=== PATIENT | female | born 1945 | race Caucasian/White ===

== ENCOUNTER 2018-07-18 13:25 | Inpatient (IN) | payer OTHER ==
[~2018-07-18] VITALS: Ht 162.6 cm; Wt 46.1 kg
[~2018-07-18 13:25] MED LIST: ALBU0.63 NEB; ALEN70TA3 PO; ALPR-475 PO; ASPI-515 PO; CITA40TA12 PO; FLUC200T PO; FLUT15.88 INH; FLUT1BLS INH; HYDR-3241 PO; LEVO500T47 PO; LISI-167 PO; LISI2.5T PO; LISI5TAB7 PO; NYST1000 PO; PRED10TA PO; PRED20TA PO; ROSU5TAB PO; SIMV20TA3 PO; TIOT4MIS5 INH; UBID100C41 PO; anastrozole; breo; fish oil PEG; nebulizer; proair; singulair; spiriva; ventolin
[2018-07-18 14:08] LABS: INTERNATIONAL NORMALIZED RATIO 1.03 (0.93-1.1); PROTHROMBIN TIME 10.8 Seconds (9.6-11.5)
[2018-07-18 14:13] LABS: ALANINE AMINOTRANSFERASE 53 U/L (12-78); ALBUMIN 3.3 g/dL (3.4-5.0); ANION GAP 15 mmol/L (5-15); CALCIUM 8.4 mg/dL (8.5-10.1); CHLORIDE 104 mmol/L (98-107); SALICYLATE LEVEL < 1.7 mg/dL (2.8-20.0)
[2018-07-18 14:17] LABS: ALKALINE PHOSPHATASE 60 U/L (45-117); BILIRUBIN,TOTAL 0.7 mg/dL (0.2-1.0)
[2018-07-18 14:21] LABS: ACETAMINOPHEN < 2 mcg/mL (10-30)
[2018-07-18 15:00] LABS: MEAN CORPUSCULAR HEMOGLOBIN 33.4 pg (27.0-34.8); MEAN CORPUSCULAR HGB CONC 33.3 g/dL (32.4-35.8); MEAN CORPUSCULAR VOLUME 100.4 fL (80-100); MEAN PLATELET VOLUME 7.6 fL (7.4-10.4); PLATELET COUNT 226 x10^3/uL (130-400); RED BLOOD COUNT 4.62 x10^6/uL (3.82-5.3); RED CELL DISTRIBUTION WIDTH 13.5 % (9.6-15.2)
--- NOTE | 2018-07-18 15:14 | NUR ---
Pt ambulates with steady gait and balance stand by assist to restroom from ED room with EDRN. PT AOX3, pt states it is "2020". NADN. No obvious defecits observed. Pt resting back on gurney with SZ precautions in placed and connected to NIBP, continous pulse ox, and environmental monitoring specialist. Pt has call light within reach and warm blankets provided for comfort measures. Pt is maintaining oxygen levels and air way at this time with no signs or symptoms of respiratory distress observed.
[2018-07-18] MEDS ORDERED: LORazepam 2 MG/ML, 1ML ONE (15:18)
[2018-07-18 15:24] LABS: MD YES
[2018-07-18 15:27] LABS: BAND#(MANUAL) 0.32 x10^3/uL; BANDS%(MANUAL) 2 % (0-7); LYMPH#(MANUAL) 2.05 x10^3/uL (1-3.4); LYMPHS% (MANUAL) 13 % (22-44); MONOS#(MANUAL) 0.95 x10^3/uL (0.3-2.7); MONOS% (MANUAL) 6 % (2-9); SEG#(MANUAL) 12.48 x10^3/uL (1.8-6.8); SEGS% (MANUAL) 79 % (42-75)
[2018-07-18 15:29] LABS: <RBC MORPHOLOGY> NORMAL
[2018-07-18 15:30] LABS: <PLATELET ESTIMATE> ADEQUATE; <PLT MORPHOLOGY> NORMAL PLT MORPH
--- NOTE | 2018-07-18 15:49 | NUR ---
LATE NOTE FOR 1516: Pt has witnessed seizure with urine incontinence in ED. Pt provided Ativan per EMAR and PIV medication provided per EMAR.
--- NOTE | 2018-07-18 15:58 | NUR ---
PT. WAS MOVED TO TRAUMA 3. PT. REPORT WAS RECEIVED. RN IS AT THE BEDSIDE. CP MONITOR IS IN PLACE. PT.'S SEIZURE PRECAUTIONS ARE MAINTAINED.
[2018-07-18] MEDS ORDERED: LORazepam 2 MG/ML, 1ML IVPush ONE (16:00)
[2018-07-18] MEDS ORDERED: LEVETIRACETAM 2,000 MG in SODIUM CHLORIDE 0.9% 100 ML IV ONE (16:00)
--- NOTE | 2018-07-18 16:00 | NUR ---
Provided bedside report to BLAZE Patiño. All questions answered.
--- NOTE | 2018-07-18 16:07 | NUR ---
RECEIVED BEDSIDE REPORT FROM BLAZE HERNANDES AND BLAZE SARKAR. PT RESTING ON [facility].
--- NOTE | 2018-07-18 16:39 | NUR ---
PT BACK FROM CT. THIS RN ACCOMPANIED PT DURING CT IMAGE.
--- NOTE | 2018-07-18 16:50 | NUR ---
PT RESTING ON GURNEY LEFT LATERAL POSITION. PT AWAKES TO VERBAL STIMULI. VSS. WILL CONTINUE TO MONITOR
--- NOTE | 2018-07-18 16:58 | NUR ---
TO VISIT. BROUGHT CLOTHES, PHONE PEDIATRIC ASSISTANT AND BOOK. REFUSES TO STAY. STATES "I'LL CALL LATER TO FIND OUT WHERE SHE IS. NOTHING I CAN DO HERE."
[2018-07-18] MEDS ORDERED: FLUO10CA7 PO (17:13)
[2018-07-18] MEDS ORDERED: ALBU8.5H8 INH (17:13)
[2018-07-18] MEDS ORDERED: ROFL500T PO (17:13)
[2018-07-18] MEDS ORDERED: ANAS1TAB PO (17:13)
--- NOTE | 2018-07-18 17:14 | NUR ---
PT RESTING ON GURNEY. NO ACUTE DISTRESS NOTED. NO SEIZURE LIKE ACTIVITY. VSS. WILL CONTINUE TO MONITOR.
--- NOTE | 2018-07-18 17:29 | NUR ---
PT LINENS CHANGED. PT CLEANED UP AND PLACED ON CLEAN AND DRY LINENS. PT TOLERATED WITH NO COMPLICATIONS.
--- NOTE | 2018-07-18 17:45 | NUR ---
PT WITH [facility]. DENIED BY ASHLI SYED
[2018-07-18] MEDS ORDERED: ONDANSETRON ODT 4 MG PO PRN (18:00)
[2018-07-18] MEDS ORDERED: POLYETHYLENE GLYCOL 17 GM PACKET PO PRN (18:00)
[2018-07-18] MEDS ORDERED: ACETAMINOPHEN 325 MG TABLET PO PRN (18:00)
[2018-07-18] MEDS ORDERED: BISACODYL 10 MG SUPP PR PRN (18:00)
[2018-07-18] MEDS ORDERED: ALENDRONATE 70 MG TABLET PO SCH ×2 (18:00→19:00)
--- NOTE | 2018-07-18 18:06 | NUR ---
REPORT TO BLAZE LEON. ALL QUESTIONS ANSWERED. EDWARD WILL CALL BACK WHEN ROOM IS CLEAN
--- NOTE | 2018-07-18 18:22 | NUR ---
pt cleaned after using bed chatterjee. pt has clean linens and gown. no acute distress noted. will continue to monitor.
[2018-07-18 18:31] LABS: HEMOGLOBIN A1C 6.1 % (4.2-6.3)
[2018-07-18 18:53] VITALS: BP 114/70
[2018-07-18 19:00] VITALS: BP 114/70
[2018-07-18] MEDS ORDERED: IPRATROPIUM 0.5 MG/2.5 ML INHA NPPB SCH (20:00)
[2018-07-18] MEDS ORDERED: ALBUTEROL SULFATE 2.5 MG/3 ML NPPB PRN (20:30)
[2018-07-18] MEDS: IPRATROPIUM 0.5 MG/2.5 ML INHA NPPB SCH (20:32)
[2018-07-18] MEDS: BUDESONIDE 0.5 MG/2 ML INHA NPPB SCH (20:32)
[2018-07-18] MEDS ORDERED: TEMPLATE NON-FORMULARY MED. (Ubidecarenone** (Co Q-10**) 200 MG) PO SCH (21:00)
[2018-07-18] MEDS ORDERED: ALBUTEROL SULFATE 2.5 MG/3 ML NPPB SCH (21:00)
[2018-07-18] MEDS: HEPARIN 5,000 UNITS/ML, 1ML SQ SCH (21:53)
[2018-07-18] MEDS: SODIUM CHLORIDE 0.9% 1,000 ML IV SCH (21:53)
[2018-07-18] MEDS: ATORVASTATIN 20 MG TABLET PO SCH (21:55)
[2018-07-18 23:42] LABS: MICROSCOPIC NOT IND
[2018-07-18 23:45] LABS: CHLORIDE,URINE RANDOM 140 mmol/L; POTASSIUM,URINE RANDOM 37 mmol/L; SODIUM,URINE RANDOM 175 mmol/L
[2018-07-18 23:47] LABS: CULTURE INDICATED? NO
[2018-07-19 00:57] VITALS: BP 119/56
[2018-07-19] MEDS: HEPARIN 5,000 UNITS/ML, 1ML SQ SCH ×3 (02:34→18:12)
[2018-07-19] MEDS: SODIUM CHLORIDE 0.9% 1,000 ML IV SCH ×2 (05:37→18:12)
[2018-07-19 07:42] LABS: BASOPHILS # (AUTO) 0.02 x10^3/uL (0-0.1); BASOPHILS % (AUTO) 0 % (0-1); EOSINOPHILS # (AUTO) 0.15 x10^3/uL (0-0.4); EOSINOPHILS % (AUTO) 1 % (1-7); LYMPHOCYTES # (AUTO) 1.45 x10^3/uL (1-3.4); LYMPHOCYTES % (AUTO) 14 % (22-44); MD NO; MEAN CORPUSCULAR HEMOGLOBIN 33.6 pg (27.0-34.8); MEAN CORPUSCULAR HGB CONC 33.9 g/dL (32.4-35.8); MEAN CORPUSCULAR VOLUME 99.2 fL (80-100); MEAN PLATELET VOLUME 7.7 fL (7.4-10.4); MONOCYTES # (AUTO) 0.74 x10^3/uL (0.2-0.8); MONOCYTES % (AUTO) 7 % (2-9); NEUTROPHILS # (AUTO) 7.88 x10^3/uL (1.8-6.8); NEUTROPHILS % (AUTO) 77 % (42-75); PLATELET COUNT 158 x10^3/uL (130-400); RED BLOOD COUNT 3.73 x10^6/uL (3.82-5.3); RED CELL DISTRIBUTION WIDTH 13.2 % (9.6-15.2)
[2018-07-19 07:45] LABS: CALCIUM 7.3 mg/dL (8.5-10.1); CHLORIDE 109 mmol/L (98-107)
[2018-07-19 07:51] LABS: ALANINE AMINOTRANSFERASE 37 U/L (12-78); ALBUMIN 2.7 g/dL (3.4-5.0); ALKALINE PHOSPHATASE 40 U/L (45-117); ANION GAP 6 mmol/L (5-15); BILIRUBIN,TOTAL 1.2 mg/dL (0.2-1.0); CREATININE 0.78 mg/dL (0.55-1.02); TOTAL PROTEIN 4.8 g/dL (6.4-8.2)
[2018-07-19 08:49] VITALS: BP 124/62
[2018-07-19] MEDS ORDERED: FLUTICASONE/VILANTEROL 200-25MCG/INH INH SCH (09:00)
[2018-07-19] MEDS ORDERED: LEVETIRACETAM 500 MG TABLET PO SCH ×2 (09:00)
[2018-07-19] MEDS: ANASTROZOLE 1 MG TABLET PO SCH (09:00)
[2018-07-19] MEDS: IPRATROPIUM 0.5 MG/2.5 ML INHA NPPB SCH ×2 (09:00→18:50)
[2018-07-19] MEDS: SENNA/DOCUSATE TABLET PO SCH (09:00)
[2018-07-19] MEDS: FLUOXETINE 10 MG CAP PO SCH (09:00)
[2018-07-19] MEDS: BUDESONIDE 0.5 MG/2 ML INHA NPPB SCH ×2 (09:00→18:50)
[2018-07-19] MEDS: ROFLUMILAST 500 MCG HOMEMEDPO SCH (09:00)
[2018-07-19] MEDS ORDERED: LORazepam 0.5MG TABLET PO ONE (10:00)
[2018-07-19] MEDS: POTASSIUM CHLORIDE 20 MEQ PACKET PO SCH (10:03)
[2018-07-19] MEDS: ASPIRIN 81 MG TABLET EC PO SCH (10:03)
[2018-07-19] MEDS ORDERED: GADOBUTROL 7.5 MMOL/7.5 ML PFS ONE (11:03)
[2018-07-19 15:20] LABS: AMPHETAMINE SCREEN, URINE Negative (Negative); BARBITURATE SCREEN, URINE Negative (Negative); BENZODIAZEPINE SCREEN, URINE Negative (Negative); CANNABINOID SCREEN, URINE Negative (Negative); COCAINE SCREEN, URINE Negative (Negative); METHADONE SCREEN, URINE Negative (Negative); OPIATE SCREEN, URINE Negative (Negative)
[2018-07-19 15:49] VITALS: BP 148/67
[2018-07-19] MEDS ORDERED: LEVETIRACETAM 1,000 MG in SODIUM CHLORIDE 0.9% 100 ML IV SCH (16:30)
[2018-07-19 18:46] VITALS: BP 119/53
[2018-07-19] MEDS ORDERED: LEVETIRACETAM 100 MG/ML, 5ML IV SCH (21:00)
[2018-07-19] MEDS: ATORVASTATIN 20 MG TABLET PO SCH (21:23)
[2018-07-19] MEDS: LEVETIRACETAM 500 MG TABLET PO SCH (21:24)
[2018-07-20 01:38] VITALS: BP 115/63
[2018-07-20] MEDS: HEPARIN 5,000 UNITS/ML, 1ML SQ SCH ×2 (02:15→11:06)
[2018-07-20] MEDS: SODIUM CHLORIDE 0.9% 1,000 ML IV SCH (02:15)
[2018-07-20 06:21] LABS: CHLORIDE 112 mmol/L (98-107)
[2018-07-20 06:22] LABS: BASOPHILS # (AUTO) 0.03 x10^3/uL (0-0.1); BASOPHILS % (AUTO) 0 % (0-1); EOSINOPHILS # (AUTO) 0.08 x10^3/uL (0-0.4); EOSINOPHILS % (AUTO) 1 % (1-7); LYMPHOCYTES # (AUTO) 1.36 x10^3/uL (1-3.4); LYMPHOCYTES % (AUTO) 17 % (22-44); MD NO; MEAN CORPUSCULAR HEMOGLOBIN 33.8 pg (27.0-34.8); MEAN CORPUSCULAR HGB CONC 33.9 g/dL (32.4-35.8); MEAN CORPUSCULAR VOLUME 99.6 fL (80-100); MEAN PLATELET VOLUME 7.2 fL (7.4-10.4); MONOCYTES # (AUTO) 0.48 x10^3/uL (0.2-0.8); MONOCYTES % (AUTO) 6 % (2-9); NEUTROPHILS # (AUTO) 6.03 x10^3/uL (1.8-6.8); NEUTROPHILS % (AUTO) 76 % (42-75); PLATELET COUNT 139 x10^3/uL (130-400); RED BLOOD COUNT 3.53 x10^6/uL (3.82-5.3); RED CELL DISTRIBUTION WIDTH 13.4 % (9.6-15.2)
[2018-07-20 06:29] LABS: ALANINE AMINOTRANSFERASE 34 U/L (12-78); ALBUMIN 2.5 g/dL (3.4-5.0); ALKALINE PHOSPHATASE 35 U/L (45-117); ANION GAP 6 mmol/L (5-15); BILIRUBIN,TOTAL 1.2 mg/dL (0.2-1.0); CALCIUM 7.2 mg/dL (8.5-10.1); CREATININE 0.65 mg/dL (0.55-1.02); TOTAL PROTEIN 4.7 g/dL (6.4-8.2)
[2018-07-20] MEDS ORDERED: ALENDRONATE 70 MG TABLET PO SCH (06:30)
[2018-07-20 08:19] VITALS: BP 145/73
[2018-07-20] MEDS: BUDESONIDE 0.5 MG/2 ML INHA NPPB SCH (08:40)
[2018-07-20] MEDS: ROFLUMILAST 500 MCG HOMEMEDPO SCH (08:41)
[2018-07-20] MEDS: FLUOXETINE 10 MG CAP PO SCH (08:44)
[2018-07-20] MEDS: SENNA/DOCUSATE TABLET PO SCH (08:44)
[2018-07-20] MEDS: POTASSIUM CHLORIDE 20 MEQ PACKET PO SCH (08:45)
[2018-07-20] MEDS: ASPIRIN 81 MG TABLET EC PO SCH (08:45)
[2018-07-20] MEDS: LEVETIRACETAM 500 MG TABLET PO SCH (08:46)
[2018-07-20] MEDS ORDERED: ALBUTEROL/IPRATROPIUM 2.5MG/0.5MG, 3 ML NPPB SCH (09:00)
[2018-07-20] MEDS: ANASTROZOLE 1 MG TABLET PO SCH (11:37)
[2018-07-20 12:05] VITALS: BP 118/56
[2018-07-20] MEDS ORDERED: LEVE500T53 PO (13:27)
[2018-07-20] MEDS ORDERED: ASPI81TA45 PO (13:28)
[2018-07-20] MEDS ORDERED: SODIUM CHLORIDE 0.9% 1,000 ML IV SCH (17:53)
[2018-07-20] MEDS ORDERED: LEVETIRACETAM 500 MG TABLET PO SCH (21:00)
== END 2018-07-20 15:00 | disposition home or self-care (01) | DRG 100 ==
LOC: ED 16:11 → EDIP 17:14 → 4WST 18:37 → DCLOUNGE 07-20 14:52
PROVIDERS: ADMIT Internal Medicine; ATTEND Internal Medicine
PROC: 0T9B70Z Drainage of Bladder with Drainage Device, Via Natural or Artificial Opening (ICD-10-PCS; principal; 2018-07-18)
DX: G40.909 Epilepsy, unspecified, not intractable, without status epilepticus (principal); E43 Unspecified severe protein-calorie malnutrition; R65.11 Systemic inflammatory response syndrome (SIRS) of non-infectious origin with acute organ dysfunction; N17.9 Acute kidney failure, unspecified; E87.2 Acidosis; G93.40 Encephalopathy, unspecified; J44.1 Chronic obstructive pulmonary disease with (acute) exacerbation; Z68.1 Body mass index [BMI] 19.9 or less, adult; D72.829 Elevated white blood cell count, unspecified; D75.89 Other specified diseases of blood and blood-forming organs; E78.5 Hyperlipidemia, unspecified; E87.6 Hypokalemia; F17.210 Nicotine dependence, cigarettes, uncomplicated; F41.9 Anxiety disorder, unspecified; G47.33 Obstructive sleep apnea (adult) (pediatric); I10 Essential (primary) hypertension; I25.10 Atherosclerotic heart disease of native coronary artery without angina pectoris; I25.2 Old myocardial infarction; M81.0 Age-related osteoporosis without current pathological fracture; Z85.3 Personal history of malignant neoplasm of breast; Z90.710 Acquired absence of both cervix and uterus; Z71.6 Tobacco abuse counseling; Z79.899 Other long term (current) drug therapy; Z79.82 Long term (current) use of aspirin
CPT/HCPCS: 36415; 70450; 70553; 71045; 80053; 80307; 81003; 82140; 82436; 82607; 82962; 83036; 83605; 84133; 84300; 85025; 85610; 87040; 93005; 94640; 95812; 96365; 96375; A9585; G0378; J1644; J1953; J7620; J7626; J7644; J2060; J7030

== ENCOUNTER 2018-08-07 15:49 | Inpatient (IN) | payer OTHER ==
[~2018-08-07] VITALS: Ht 162.6 cm; Wt 49.0 kg
[~2018-08-07 15:49] MED LIST changes: +ALBU8.5H8 INH; +ANAS1TAB PO; +ASPI81TA45 PO; +FLUO10CA7 PO; +LEVE500T53 PO; +ROFL500T PO
[2018-08-07 16:43] LABS: ALBUMIN 3.5 g/dL (3.4-5.0); ANION GAP 6 mmol/L (5-15); CALCIUM 8.7 mg/dL (8.5-10.1); CHLORIDE 103 mmol/L (98-107)
[2018-08-07 16:45] LABS: BASOPHILS # (AUTO) 0.02 x10^3/uL (0-0.1); BASOPHILS % (AUTO) 0 % (0-1); EOSINOPHILS # (AUTO) 0.02 x10^3/uL (0-0.4); EOSINOPHILS % (AUTO) 0 % (1-7); LYMPHOCYTES # (AUTO) 1.45 x10^3/uL (1-3.4); LYMPHOCYTES % (AUTO) 17 % (22-44); MD NO; MEAN CORPUSCULAR HEMOGLOBIN 33.6 pg (27.0-34.8); MEAN CORPUSCULAR VOLUME 101.7 fL (80-100); MEAN PLATELET VOLUME 7.3 fL (7.4-10.4); MONOCYTES # (AUTO) 0.74 x10^3/uL (0.2-0.8); MONOCYTES % (AUTO) 9 % (2-9); NEUTROPHILS # (AUTO) 6.19 x10^3/uL (1.8-6.8); NEUTROPHILS % (AUTO) 73 % (42-75); PLATELET COUNT 220 x10^3/uL (130-400); RED BLOOD COUNT 4.25 x10^6/uL (3.82-5.3); RED CELL DISTRIBUTION WIDTH 14.1 % (9.6-15.2)
[2018-08-07 16:46] LABS: ALANINE AMINOTRANSFERASE 24 U/L (12-78); ALKALINE PHOSPHATASE 57 U/L (45-117); BILIRUBIN,TOTAL 0.7 mg/dL (0.2-1.0); CREATININE 0.97 mg/dL (0.55-1.02); TOTAL PROTEIN 6.8 g/dL (6.4-8.2)
--- NOTE | 2018-08-07 17:20 | NUR ---
TO ROOM FROM LOBBY. NAD.
[2018-08-07] MEDS ORDERED: DIPH,PERTUSS(ACELL),TET VAC/PF 0.5 ML IM-VACC ONE ×2 (17:30→18:33)
[2018-08-07] MEDS ORDERED: SODIUM CHLORIDE FLUSH 10ML SYR IVF ONE (17:30)
[2018-08-07] MEDS ORDERED: AMPICILLIN/SULBACTAM 3 GM in SODIUM CHLORIDE 0.9% 100 ML IV ONE (17:30)
[2018-08-07] MEDS ORDERED: HYDROcodone/APAP 5/325 TABLET PO ONE (17:30)
--- NOTE | 2018-08-07 17:38 | NUR ---
ANKIT RN: PT CHECKED IN BY ANKIT THAKUR. THIS IS A 73 YO FEMALE WHO PRESENTS TO THE ER C/O RIGHT INDEX PAIN/SWELLING/REDNESS SINCE LAST NIGHT WHEN HER CAT BIT HER. REDNESS NOTED UP TO MID FOREARM ON THE RIGHT. PT HAS SCATTERED BRUSING OVER BILAT FA. PER PT "THIS IS NORMAL" AND A TREMOR NOTED THAT IS BASELINE PER PT. PT AO X 4. SKIN WARM AND DRY. RESP EVEN AND UNLABORED. REPORT TO BLAZE ADAMSON WHO ASSUMED CARE OF PT.
[2018-08-07] MEDS ORDERED: HYDROcodone/APAP 5/325 TABLET ONE (18:33)
--- NOTE | 2018-08-07 18:40 | NUR ---
MEDICATED PER EMAR. PT RESTING IN BED. DENIES NEEDS AT THIS TIME.
--- NOTE | 2018-08-07 19:10 | NUR ---
BEDSIDE REPORT RECEIVED FROM JOYCE ROJAS. PT RESTING CALMLY IN BED.
[2018-08-07] MEDS ORDERED: ONDANSETRON 2MG/ML, 2ML IVPush PRN (19:30)
[2018-08-07] MEDS ORDERED: DOCUSATE 100 MG CAPSULE PO PRN (19:30)
[2018-08-07] MEDS ORDERED: morphine SULFATE 10 MG/ML, 1ML IVPush PRN (19:30)
[2018-08-07] MEDS ORDERED: POLYETHYLENE GLYCOL 17 GM PACKET PO PRN (19:30)
[2018-08-07] MEDS ORDERED: ACETAMINOPHEN 325 MG TABLET PO PRN (19:30)
[2018-08-07] MEDS ORDERED: hydrALAzine 20 MG/ML, 1ML IVPush PRN (19:30)
[2018-08-07] MEDS ORDERED: PROMETHAZINE 25 MG/ML, 1ML IM PRN (19:30)
[2018-08-07] MEDS ORDERED: ONDANSETRON ODT 4 MG PO PRN (19:30)
[2018-08-07] MEDS ORDERED: BISACODYL 10 MG SUPP PR PRN (19:30)
--- NOTE | 2018-08-07 19:46 | NUR ---
PT UP TO THE BATHROOM STEADILY. ABX FINISHED. PT IV SALINE LOCKED. CALL LIGHT WITHIN REACH. WILL CONTINUE TO MONITOR.
[2018-08-07] MEDS ORDERED: TEMPLATE NON-FORMULARY MED. (Albuterol Sulfate (Albuterol Sulfate**) 1 VIAL) NEB PRN (20:00)
[2018-08-07 20:03] LABS: FREE T4 (FREE THYROXINE) 0.91 ng/dL (0.76-1.46); THYROID STIMULATING HORMONE 0.228 mIU/L (0.358-3.740)
[2018-08-07 20:04] LABS: HEMOGLOBIN A1C 5.9 % (4.2-6.3)
[2018-08-07 20:19] LABS: HCT (SEDRATE) 37.7 % (34.6-47.8)
[2018-08-07] MEDS ORDERED: TEMPLATE NON-FORMULARY MED. (Ubidecarenone** (Co Q-10**) 200 MG) PO SCH (21:00)
--- NOTE | 2018-08-07 22:01 | NUR ---
REPORT TO BRANT THAKUR FOR ROOM 460
[2018-08-07] MEDS ORDERED: HEPARIN 5,000 UNITS/ML, 1ML ONE (22:02)
[2018-08-07] MEDS ORDERED: LISINOPRIL 5 MG TABLET ONE (22:03)
[2018-08-07] MEDS ORDERED: LEVETIRACETAM 500 MG TABLET ONE (22:03)
[2018-08-07] MEDS: SODIUM CHLORIDE 0.9% 1,000 ML IV SCH (22:08)
[2018-08-07] MEDS: ATORVASTATIN 20 MG TABLET PO SCH (22:09)
[2018-08-07] MEDS: LEVETIRACETAM 500 MG TABLET PO SCH (22:09)
[2018-08-07] MEDS: HEPARIN 5,000 UNITS/ML, 1ML SQ SCH (22:11)
[2018-08-07] MEDS: LISINOPRIL 5 MG TABLET PO SCH (22:16)
--- NOTE | 2018-08-07 22:25 | NUR ---
MEDICATED PT WITH SCHEDULED MEDS. PT LISINOPRIL HELD DUE TO LOW BP, SEE CHARTED. HOSPITALIST MADE AWARE, ORDERS PLACED. ORDERED NS BOLUS INFUSING AT THIS TIME. PT WAS UP TO BATHROOM STEADILY. PT CURRENTLY IN BED DOZING OFF AND ON.
[2018-08-07] MEDS ORDERED: SODIUM CHLORIDE 0.9% 1,000ML IVBOLUS ONE (22:30)
--- NOTE | 2018-08-07 23:02 | NUR ---
pt bp improved at this time, see charted. floor rn Reinaldo updated. PT UNSURE IF SHE HAD ANY LYMPHNODES REMOVED WITH HX OF BREAST CA. PT GOING UP TO FLOOR AT THIS TIME.
[2018-08-08] MEDS: AMPICILLIN/SULBACTAM 3 GM in SODIUM CHLORIDE 0.9% 100 ML IV SCH ×4 (01:04→18:37)
[2018-08-08 01:07] VITALS: BP 100/60
[2018-08-08] MEDS ORDERED: IPRATROPIUM 0.5 MG/2.5 ML INHA NPPB SCH (06:00)
[2018-08-08] MEDS ORDERED: ALBUTEROL SULFATE 2.5 MG/3 ML NPPB SCH (06:00)
[2018-08-08 06:02] LABS: BASOPHILS # (AUTO) 0.02 x10^3/uL (0-0.1); BASOPHILS % (AUTO) 0 % (0-1); EOSINOPHILS # (AUTO) 0.04 x10^3/uL (0-0.4); EOSINOPHILS % (AUTO) 1 % (1-7); LYMPHOCYTES # (AUTO) 1.75 x10^3/uL (1-3.4); LYMPHOCYTES % (AUTO) 32 % (22-44); MD NO; MEAN CORPUSCULAR HEMOGLOBIN 33.3 pg (27.0-34.8); MEAN CORPUSCULAR VOLUME 100.8 fL (80-100); MEAN PLATELET VOLUME 6.9 fL (7.4-10.4); MONOCYTES # (AUTO) 0.67 x10^3/uL (0.2-0.8); MONOCYTES % (AUTO) 12 % (2-9); NEUTROPHILS # (AUTO) 3.04 x10^3/uL (1.8-6.8); NEUTROPHILS % (AUTO) 55 % (42-75); PLATELET COUNT 167 x10^3/uL (130-400); RED BLOOD COUNT 3.47 x10^6/uL (3.82-5.3); RED CELL DISTRIBUTION WIDTH 14.5 % (9.6-15.2)
[2018-08-08 06:10] LABS: ALBUMIN 2.6 g/dL (3.4-5.0); ANION GAP 3 mmol/L (5-15); CALCIUM 7.9 mg/dL (8.5-10.1); CHLORIDE 116 mmol/L (98-107)
[2018-08-08] MEDS: HEPARIN 5,000 UNITS/ML, 1ML SQ SCH ×3 (06:12→21:03)
[2018-08-08 06:14] LABS: ALANINE AMINOTRANSFERASE 19 U/L (12-78); ALKALINE PHOSPHATASE 44 U/L (45-117); BILIRUBIN,TOTAL 0.6 mg/dL (0.2-1.0); CHOLESTEROL, TOTAL 125 mg/dL (140-239); CREATININE 0.79 mg/dL (0.55-1.02); HDL CHOL % 50 % (28-40); HDL CHOLESTEROL (DIRECT) 63 mg/dL (40-60); LDL CHOLESTEROL,CALCULATED 40 mg/dL (54-169); LDL/HDL RATIO 0.6 (0.5-3.0); TOTAL PROTEIN 5.2 g/dL (6.4-8.2); TRIGLYCERIDES 109 mg/dL (50-200); VLDL CHOLESTEROL 22 mg/dL (0-25)
[2018-08-08 06:31] VITALS: BP 91/46
[2018-08-08] MEDS ORDERED: ALBUTEROL/IPRATROPIUM 2.5MG/0.5MG, 3 ML ONE (06:46)
[2018-08-08] MEDS: ALBUTEROL/IPRATROPIUM 2.5MG/0.5MG, 3 ML HHN SCH ×4 (07:00→19:06)
[2018-08-08] MEDS: LISINOPRIL 5 MG TABLET PO SCH ×3 (09:00→21:02)
[2018-08-08] MEDS: BUDESONIDE 0.5 MG/2 ML INHA INH SCH ×2 (09:00→19:06)
[2018-08-08] MEDS: ROFLUMILAST 500 MCG HOMEMEDPO SCH (09:00)
[2018-08-08] MEDS: FLUOXETINE 10 MG CAP PO SCH (09:00)
[2018-08-08] MEDS: SODIUM CHLORIDE 0.9% 1,000 ML IV SCH (09:03)
[2018-08-08] MEDS: ANASTROZOLE 1 MG TABLET PO SCH (09:03)
[2018-08-08] MEDS: LEVETIRACETAM 500 MG TABLET PO SCH ×2 (09:04→21:02)
[2018-08-08] MEDS: ASPIRIN 81 MG TABLET EC PO SCH (09:04)
[2018-08-08 13:36] VITALS: BP 107/57
[2018-08-08 14:01] VITALS: BP 132/80
[2018-08-08] MEDS: HYDROcodone/APAP 5/325 TABLET PO PRN ×2 (17:00→21:03)
[2018-08-08 18:30] VITALS: BP 122/60
[2018-08-08] MEDS: ATORVASTATIN 20 MG TABLET PO SCH (21:02)
[2018-08-09] MEDS: AMPICILLIN/SULBACTAM 3 GM in SODIUM CHLORIDE 0.9% 100 ML IV SCH ×4 (00:52→19:20)
[2018-08-09 01:58] VITALS: BP 94/58
[2018-08-09 06:43] VITALS: BP 103/55
[2018-08-09] MEDS: HEPARIN 5,000 UNITS/ML, 1ML SQ SCH ×3 (06:48→21:30)
[2018-08-09] MEDS: ALBUTEROL/IPRATROPIUM 2.5MG/0.5MG, 3 ML HHN SCH ×3 (07:36→18:34)
[2018-08-09] MEDS: BUDESONIDE 0.5 MG/2 ML INHA INH SCH ×2 (07:36→21:00)
[2018-08-09] MEDS: ANASTROZOLE 1 MG TABLET PO SCH (08:51)
[2018-08-09] MEDS: ASPIRIN 81 MG TABLET EC PO SCH (08:55)
[2018-08-09] MEDS: HYDROcodone/APAP 5/325 TABLET PO PRN ×2 (08:55→21:30)
[2018-08-09] MEDS: LEVETIRACETAM 500 MG TABLET PO SCH ×2 (08:56→21:30)
[2018-08-09] MEDS: LISINOPRIL 5 MG TABLET PO SCH (08:58)
[2018-08-09] MEDS: ROFLUMILAST 500 MCG HOMEMEDPO SCH (08:59)
[2018-08-09] MEDS: FLUOXETINE 10 MG CAP PO SCH (08:59)
[2018-08-09 10:00] LABS: BASOPHILS # (AUTO) 0.02 x10^3/uL (0-0.1); BASOPHILS % (AUTO) 0 % (0-1); EOSINOPHILS # (AUTO) 0.02 x10^3/uL (0-0.4); EOSINOPHILS % (AUTO) 1 % (1-7); LYMPHOCYTES # (AUTO) 0.83 x10^3/uL (1-3.4); LYMPHOCYTES % (AUTO) 18 % (22-44); MD NO; MEAN CORPUSCULAR HEMOGLOBIN 33.1 pg (27.0-34.8); MEAN CORPUSCULAR HGB CONC 32.9 g/dL (32.4-35.8); MEAN CORPUSCULAR VOLUME 100.8 fL (80-100); MEAN PLATELET VOLUME 6.9 fL (7.4-10.4); MONOCYTES # (AUTO) 0.44 x10^3/uL (0.2-0.8); MONOCYTES % (AUTO) 10 % (2-9); NEUTROPHILS # (AUTO) 3.28 x10^3/uL (1.8-6.8); NEUTROPHILS % (AUTO) 72 % (42-75); PLATELET COUNT 163 x10^3/uL (130-400); RED BLOOD COUNT 3.48 x10^6/uL (3.82-5.3); RED CELL DISTRIBUTION WIDTH 14.5 % (9.6-15.2)
[2018-08-09 10:01] LABS: ANION GAP 3 mmol/L (5-15); CALCIUM 7.9 mg/dL (8.5-10.1); CHLORIDE 116 mmol/L (98-107)
[2018-08-09 10:02] LABS: CREATININE 0.69 mg/dL (0.55-1.02)
[2018-08-09] MEDS: LORazepam 0.5MG TABLET PO PRN ×2 (10:30→21:30)
[2018-08-09] MEDS: MULTIVIT.W/IRON, MINERALS ORAL SOL PO SCH (13:17)
[2018-08-09] MEDS: THIAMINE 100MG TABLET PO SCH (13:17)
[2018-08-09] MEDS: ASCORBIC ACID 500 MG TABLET PO SCH (13:17)
[2018-08-09 13:20] VITALS: BP 90/53
[2018-08-09 20:39] VITALS: BP 117/55
[2018-08-09] MEDS: ATORVASTATIN 20 MG TABLET PO SCH (21:30)
[2018-08-10 01:11] VITALS: BP 102/58
[2018-08-10] MEDS: AMPICILLIN/SULBACTAM 3 GM in SODIUM CHLORIDE 0.9% 100 ML IV SCH ×4 (01:15→21:32)
[2018-08-10] MEDS: ALBUTEROL/IPRATROPIUM 2.5MG/0.5MG, 3 ML HHN SCH ×4 (02:15→20:53)
[2018-08-10 05:16] LABS: ANION GAP 4 mmol/L (5-15); CALCIUM 8.1 mg/dL (8.5-10.1); CHLORIDE 112 mmol/L (98-107); CREATININE 0.67 mg/dL (0.55-1.02)
[2018-08-10] MEDS: HEPARIN 5,000 UNITS/ML, 1ML SQ SCH ×3 (06:12→21:31)
[2018-08-10 07:56] VITALS: BP 138/75
[2018-08-10] MEDS: MULTIVIT.W/IRON, MINERALS ORAL SOL PO SCH (08:44)
[2018-08-10] MEDS: THIAMINE 100MG TABLET PO SCH (08:44)
[2018-08-10] MEDS: LEVETIRACETAM 500 MG TABLET PO SCH ×2 (08:44→21:31)
[2018-08-10] MEDS: ASPIRIN 81 MG TABLET EC PO SCH (08:44)
[2018-08-10] MEDS: ASCORBIC ACID 500 MG TABLET PO SCH (08:44)
[2018-08-10] MEDS: ANASTROZOLE 1 MG TABLET PO SCH (08:50)
[2018-08-10] MEDS: HYDROcodone/APAP 5/325 TABLET PO PRN ×2 (08:53→21:36)
[2018-08-10] MEDS: ROFLUMILAST 500 MCG HOMEMEDPO SCH (09:00)
[2018-08-10] MEDS: BUDESONIDE 0.5 MG/2 ML INHA INH SCH ×2 (10:10→21:00)
[2018-08-10 13:05] VITALS: BP 121/66
[2018-08-10] MEDS: LORazepam 0.5MG TABLET PO PRN ×2 (15:41→21:36)
[2018-08-10 19:55] VITALS: BP 142/74
[2018-08-10] MEDS: ATORVASTATIN 20 MG TABLET PO SCH (21:31)
[2018-08-11 01:44] VITALS: BP 142/59
[2018-08-11] MEDS: ALBUTEROL/IPRATROPIUM 2.5MG/0.5MG, 3 ML HHN SCH ×3 (03:00→09:16)
[2018-08-11] MEDS: AMPICILLIN/SULBACTAM 3 GM in SODIUM CHLORIDE 0.9% 100 ML IV SCH ×2 (03:25→09:50)
[2018-08-11] MEDS: HEPARIN 5,000 UNITS/ML, 1ML SQ SCH (06:04)
[2018-08-11] MEDS ORDERED: ALENDRONATE 70 MG TABLET PO SCH (06:30)
[2018-08-11 07:17] VITALS: BP 127/65
[2018-08-11] MEDS: ASCORBIC ACID 500 MG TABLET PO SCH (08:50)
[2018-08-11] MEDS: LEVETIRACETAM 500 MG TABLET PO SCH (08:50)
[2018-08-11] MEDS: THIAMINE 100MG TABLET PO SCH (08:50)
[2018-08-11] MEDS: ASPIRIN 81 MG TABLET EC PO SCH (08:55)
[2018-08-11] MEDS: ANASTROZOLE 1 MG TABLET PO SCH (09:02)
[2018-08-11] MEDS: MULTIVIT.W/IRON, MINERALS ORAL SOL PO SCH (09:02)
[2018-08-11] MEDS: BUDESONIDE 0.5 MG/2 ML INHA INH SCH (09:16)
[2018-08-11] MEDS ORDERED: MULT1TAB60 PO (10:17)
[2018-08-11] MEDS ORDERED: THIA100T67 PO (10:17)
[2018-08-11] MEDS ORDERED: AMOX1TAB64 PO (10:17)
[2018-08-11] MEDS ORDERED: FOLI-17 PO (10:17)
[2018-08-11] MEDS ORDERED: AMOXICILLIN/CLAV 875-125MG TABLET PO SCH (10:30)
== END 2018-08-11 13:35 | disposition home or self-care (01) | DRG 602 ==
LOC: ED 17:53 → EDIP 19:01 → 4NOR 23:09
PROVIDERS: ADMIT Internal Medicine; ATTEND Internal Medicine
DX: L03.011 Cellulitis of right finger (principal); E43 Unspecified severe protein-calorie malnutrition; E87.0 Hyperosmolality and hypernatremia; I50.32 Chronic diastolic (congestive) heart failure; L03.123 Acute lymphangitis of right upper limb; Z68.1 Body mass index [BMI] 19.9 or less, adult; D53.9 Nutritional anemia, unspecified; E11.9 Type 2 diabetes mellitus without complications; E78.5 Hyperlipidemia, unspecified; F17.210 Nicotine dependence, cigarettes, uncomplicated; F41.1 Generalized anxiety disorder; G25.0 Essential tremor; G40.409 Other generalized epilepsy and epileptic syndromes, not intractable, without status epilepticus; G47.33 Obstructive sleep apnea (adult) (pediatric); I11.0 Hypertensive heart disease with heart failure; I25.10 Atherosclerotic heart disease of native coronary artery without angina pectoris; J43.9 Emphysema, unspecified; M19.90 Unspecified osteoarthritis, unspecified site; M81.0 Age-related osteoporosis without current pathological fracture; Z85.3 Personal history of malignant neoplasm of breast; Z86.73 Personal history of transient ischemic attack (TIA), and cerebral infarction without residual deficits; Z90.710 Acquired absence of both cervix and uterus; Z79.82 Long term (current) use of aspirin; Z79.899 Other long term (current) drug therapy; Z88.1 Allergy status to other antibiotic agents
CPT/HCPCS: 36415; 80048; 80053; 80061; 82607; 83036; 83735; 84439; 84443; 85025; 85651; 86140; 87040; 90471; 90715; 94640; 96365; G0378; J0295; J1644; J2405; J7620; J7626; J7030

== ENCOUNTER 2018-08-07 16:39 | Emergency (ER) | payer OTHER | END 2018-08-07 17:10 | disposition left against medical advice (07) | LOC: ED 16:45 | DX: R10.9 Unspecified abdominal pain (principal); Z53.21 Procedure and treatment not carried out due to patient leaving prior to being seen by health care provider ==

== ENCOUNTER 2018-09-05 08:54 | Emergency (ER) | payer OTHER ==
[~2018-09-05] VITALS: Ht 162.6 cm; Wt 43.9 kg
[2018-09-05 12:02] VITALS: BP 120/65
== END 2018-09-05 12:04 | disposition home or self-care (01) ==
LOC: ED 09:55
DX: G89.11 Acute pain due to trauma (principal); M79.644 Pain in right finger(s); F41.1 Generalized anxiety disorder; I10 Essential (primary) hypertension; E11.9 Type 2 diabetes mellitus without complications; E78.00 Pure hypercholesterolemia, unspecified; J43.9 Emphysema, unspecified; Z85.3 Personal history of malignant neoplasm of breast; Z86.73 Personal history of transient ischemic attack (TIA), and cerebral infarction without residual deficits; W55.01XA Bitten by cat, initial encounter; Y93.89 Activity, other specified; Y92.89 Other specified places as the place of occurrence of the external cause; Y99.8 Other external cause status
CPT/HCPCS: 73140; 99283; Q0162

== ENCOUNTER 2018-10-06 13:35 | Emergency (ER) | payer OTHER ==
[~2018-10-06] VITALS: Ht 162.6 cm; Wt 44.0 kg
[2018-10-06 16:25] VITALS: BP 157/74
== END 2018-10-06 16:28 | disposition home or self-care (01) ==
LOC: ED 15:53
DX: F41.1 Generalized anxiety disorder (principal); Z90.710 Acquired absence of both cervix and uterus; J44.9 Chronic obstructive pulmonary disease, unspecified; Z85.3 Personal history of malignant neoplasm of breast; I10 Essential (primary) hypertension; E11.9 Type 2 diabetes mellitus without complications; Z86.73 Personal history of transient ischemic attack (TIA), and cerebral infarction without residual deficits; E78.00 Pure hypercholesterolemia, unspecified
CPT/HCPCS: 36415; 71045; 80048; 82040; 84484; 85025; 93005; 99284

== ENCOUNTER 2019-05-02 17:22 | Emergency (ER) | payer SELFPAY ==
[~2019-05-02] VITALS: Ht 162.6 cm; Wt 50.0 kg
[~2019-05-02 17:22] MED LIST changes: -ALPR-475 PO; +ALPR0.25 PO; +ALPR0.5T7 PO; +AMOX1TAB64 PO; +DIVA125C2 PO; +FLUO10CA14 PO; -FLUO10CA7 PO; +FLUT15.845 INH; -FLUT15.88 INH; +FOLI-17 PO; +MULT1TAB60 PO; +SIMV20TA19 PO; -SIMV20TA3 PO; +THIA100T67 PO; +TRAM50TA2 PO; +VANC1VIA3 PO
--- NOTE | 2019-05-02 17:44 | NUR ---
TO ROOM FROM [facility]. EKG COMPLETE.
[2019-05-02] MEDS ORDERED: ALBUTEROL/IPRATROPIUM 2.5MG/0.5MG, 3 ML ONE (18:29)
[2019-05-02] MEDS ORDERED: ALBUTEROL SULFATE 2.5 MG/3 ML NPPB SCH (18:30)
[2019-05-02] MEDS ORDERED: IPRATROPIUM 0.5 MG/2.5 ML INHA NPPB SCH (18:30)
--- NOTE | 2019-05-02 18:35 | NUR ---
PT HAS CO CHEST PAIN AND ANXIETY. PT STATES CHEST PAIN IS STERNAL, DOES NOT RADIATE ANYWHERE. PT STATES SHE HAS INCREASED ANXIETY AND INCREASED SOB TODAY, STATES HER WAS RECENTLY HOSPITALIZED. PT HAS HX OF COPD AND WEARS 02 AT NIGHT. HAS BEEN WEARING O2 TODAY. FINISH SPECIALIST APPLIED, VSS. GIVEN WATER AND CRACKERS, FAMILY AT BEDSIDE.
--- NOTE | 2019-05-02 19:55 | NUR ---
CALLED LAB TO SEE WHY LABS HAVE NOT BEEN PENDING, LAB HAS NOT DRAWN PT YET, WILL COME SOON
--- NOTE | 2019-05-02 19:56 | NUR ---
PT REFUSED PREDNISONE. STATES IT WILL "WIRE HER"
--- NOTE | 2019-05-02 20:05 | NUR ---
LAB AT BEDSIDE
[2019-05-02 20:22] LABS: BASOPHILS # (AUTO) 0.04 x10^3/uL (0-0.1); BASOPHILS % (AUTO) 0 % (0-1); EOSINOPHILS # (AUTO) 0.05 x10^3/uL (0-0.4); EOSINOPHILS % (AUTO) 1 % (1-7); LYMPHOCYTES # (AUTO) 2.19 x10^3/uL (1-3.4); LYMPHOCYTES % (AUTO) 26 % (22-44); MD NO; MEAN CORPUSCULAR HEMOGLOBIN 33.9 pg (27.0-34.8); MEAN CORPUSCULAR HGB CONC 33.6 g/dL (32.4-35.8); MEAN CORPUSCULAR VOLUME 101.1 fL (80-100); MEAN PLATELET VOLUME 7.7 fL (7.4-10.4); MONOCYTES # (AUTO) 0.67 x10^3/uL (0.2-0.8); MONOCYTES % (AUTO) 8 % (2-9); NEUTROPHILS # (AUTO) 5.52 x10^3/uL (1.8-6.8); NEUTROPHILS % (AUTO) 65 % (42-75); PLATELET COUNT 145 x10^3/uL (130-400); RED BLOOD COUNT 4.17 x10^6/uL (3.82-5.3); RED CELL DISTRIBUTION WIDTH 15.3 % (9.6-15.2)
[2019-05-02 20:26] LABS: ALANINE AMINOTRANSFERASE 39 U/L (12-78); ALBUMIN 3.5 g/dL (3.4-5.0); ANION GAP 5 mmol/L (5-15); CALCIUM 8.5 mg/dL (8.5-10.1); CHLORIDE 107 mmol/L (98-107); CREATININE 0.68 mg/dL (0.55-1.02)
[2019-05-02 20:30] LABS: ALKALINE PHOSPHATASE 87 U/L (45-117); BILIRUBIN,TOTAL 1.1 mg/dL (0.2-1.0); TOTAL PROTEIN 6.7 g/dL (6.4-8.2); TROPONIN I < 0.015 ng/mL (0.000-0.045)
[2019-05-02 20:58] LABS: RAPID INFLUENZA A Negative (Negative); RAPID INFLUENZA B Negative (Negative)
--- NOTE | 2019-05-02 21:02 | NUR ---
CARE ASSUMED OF PT. PT STANDING OUT OF BED AND REQUESTING HER XANAX THAT SHE NORMALLY TAKES AT NIGHT. 0.25MG PER PT. DISCUSSED WITH ERP AND ORDERS RECEIVED. ERP IN TO RECHECK PT.
[2019-05-02 21:37] VITALS: BP 113/80
== END 2019-05-03 02:47 | disposition home or self-care (01) ==
LOC: MERGE 17:22 → ED 18:00
DX: R07.89 Other chest pain (principal); F41.1 Generalized anxiety disorder; F17.200 Nicotine dependence, unspecified, uncomplicated
CPT/HCPCS: 36415; 71045; 80053; 83880; 84484; 85025; 87400; 93005; 99285

== ENCOUNTER 2019-05-21 00:12 | Emergency (ER) | payer OTHER ==
[~2019-05-21] VITALS: Ht 162.6 cm; Wt 55.0 kg
--- NOTE | 2019-05-21 00:32 | NUR ---
PT REPORTS SOB WITH NAUSEA AND DENIES VOMITTING/COUGH. PT REPORTS STRESS AT HOME, HER WAS RECENTLY HOSPITALIZED FOR CA. "I HAVE ANXIETY REALLY BAD" SYMPTOMS X1 HOUR
[2019-05-21 00:48] LABS: BASOPHILS # (AUTO) 0.05 x10^3/uL (0-0.1); BASOPHILS % (AUTO) 1 % (0-1); EOSINOPHILS # (AUTO) 0.12 x10^3/uL (0-0.4); EOSINOPHILS % (AUTO) 2 % (1-7); LYMPHOCYTES % (AUTO) 41 % (22-44); MD NO; MEAN CORPUSCULAR HEMOGLOBIN 34.5 pg (27.0-34.8); MEAN CORPUSCULAR HGB CONC 33.7 g/dL (32.4-35.8); MEAN CORPUSCULAR VOLUME 102.5 fL (80-100); MEAN PLATELET VOLUME 7.1 fL (7.4-10.4); MONOCYTES # (AUTO) 0.54 x10^3/uL (0.2-0.8); MONOCYTES % (AUTO) 7 % (2-9); NEUTROPHILS # (AUTO) 3.64 x10^3/uL (1.8-6.8); NEUTROPHILS % (AUTO) 50 % (42-75); PLATELET COUNT 250 x10^3/uL (130-400); RED BLOOD COUNT 4.03 x10^6/uL (3.82-5.3); RED CELL DISTRIBUTION WIDTH 14.9 % (9.6-15.2)
[2019-05-21 00:59] LABS: INTERNATIONAL NORMALIZED RATIO 0.93 (0.93-1.1); PROTHROMBIN TIME 9.9 Seconds (9.6-11.5)
[2019-05-21 01:01] LABS: ALBUMIN 3.4 g/dL (3.4-5.0); ANION GAP 6 mmol/L (5-15); CALCIUM 8.8 mg/dL (8.5-10.1); CHLORIDE 110 mmol/L (98-107); CREATININE 0.81 mg/dL (0.55-1.02)
[2019-05-21 01:04] LABS: TROPONIN I < 0.015 ng/mL (0.000-0.045)
--- NOTE | 2019-05-21 01:29 | NUR ---
Patient sleeping in gurney. Respirations even and unlabored.
[2019-05-21 02:23] VITALS: BP 101/60
--- NOTE | 2019-05-21 03:14 | NUR ---
Attempted to discharge patient. She states she is on O2 all the time and does not have any with her. Patient states her is home but recently was discharged from the hospital for an WI. Attempting to find safe discharge.
--- NOTE | 2019-05-21 03:35 | NUR ---
Spoke with ; he states he will have the door open and the light on for patient. Cab called and voucher given.
== END 2019-05-21 03:47 | disposition home or self-care (01) ==
LOC: ED 01:04 → MERGE 01:04 → ED 03:47
DX: R06.00 Dyspnea, unspecified (principal); F41.1 Generalized anxiety disorder; F17.200 Nicotine dependence, unspecified, uncomplicated
CPT/HCPCS: 36415; 71045; 80048; 82040; 83880; 84484; 85025; 85610; 93005; 99285